=== PATIENT | female | born 1945 | race Caucasian/White ===

== ENCOUNTER 2022-07-13 04:14 | Inpatient (IN) | payer MEDICARE, OTHER ==
[~2022-07-13] VITALS: Ht 160 cm; Wt 89.1 kg
[2022-07-13] MEDS ORDERED: ALBUTEROL SULFATE 5 MG/ML 20 ML NEB SOLN [BULK] NEB ONE (04:30)
[2022-07-13] MEDS ORDERED: IPRATROPIUM BROMIDE 0.5 MG/2.5 ML NEB SOLUTION NEB ONE (04:30)
[2022-07-13 04:36] LABS: COVID AG,FIA SOURCE NASAL SWAB
[2022-07-13 04:38] LABS: BASOPHILS % (AUTO) 0.6 % (0.0-2.0); EOSINOPHILS % (AUTO) 2.1 % (1.0-6.0); HEMATOCRIT 41.5 % (36-46); HEMOGLOBIN 13.3 g/dL (12.0-16.0); LYMPHOCYTES # (AUTO) 0.6 K/uL (1.0-4.8); MEAN CORPUSCULAR HEMOGLOBIN 30.9 pg (26.0-34.0); MEAN CORPUSCULAR HGB CONC 32.1 G/dL (31.0-37.0); MEAN CORPUSCULAR VOLUME 96 fL (80-100); MONOCYTES # (AUTO) 0.5 K/uL (0.1-1.0); MONOCYTES % (AUTO) 4.1 % (2.0-9.0); NEUTROPHILS # (AUTO) 10.8 K/uL (1.8-7.7); PLATELET COUNT (AUTO) 260 K/uL (150-450); RED BLOOD CELL COUNT(AUTO) 4.31 MIL/uL (4.00-5.20); RED CELL DISTRIBUTION WIDTH 15.9 % (11.5-14.5)
[2022-07-13] MEDS ORDERED: ONDANSETRON HCL 4 MG/2 ML VIAL IVP ONE (04:45)
[2022-07-13] MEDS ORDERED: MORPHINE SULFATE 4 MG/ML SYRINGE IVP ONE (04:45)
[2022-07-13 04:48] LABS: NEUTROPHILS % (AUTO) 88.2 % (40.0-70.0)
[2022-07-13 05:00] LABS: BILIRUBIN,TOTAL 0.5 mg/dL (0.1-1.0); CALCIUM, TOTAL 9.3 mg/dL (8.8-10.5); CREATININE 1.07 mg/dL (0.60-1.30); POTASSIUM 5.2 mmol/L (3.5-5.1); TOTAL PROTEIN, SERUM 7.6 g/dL (6.4-8.2)
[2022-07-13 05:06] LABS: ABG BASE EXCESS 13.5 mmol/L (-2.0-3.0); ABG CARBOXYHEMOGLOBIN 0.6 % (0.0-1.5); ABG HCO3 31.4 mmol/L (22.0-26.0); ABG METHEMOGLOBIN 0.4 % (0.0-1.5); ABG OXYGEN CONTENT 18.8 mL/dL (15.0-23.0); ABG OXYGEN SATURATION 94.1 % (95.0-98.0); ABG OXYHEMOGLOBIN 93.2 % (94.0-100.0); ABG TOTAL HEMOGLOBIN 14.3 G/dL (12.0-18.0); PO2, ARTERIAL BG 90.7 mmHg (75.0-83.0); SOURCE, BLOOD GAS ARTERIAL; TEMPERATURE, FAHRENHEIT, BG 97.5 FAHREN (96.0-98.6)
[2022-07-13 05:12] LABS: ABG PCO2 152 mmHg (35-45); ABG PH 7.075 (7.35-7.450); SITE, BLOOD GAS LFT RADIAL
[2022-07-13 05:13] LABS: ABG A-A DIFF O2 472.4 mmHg (10-20.0); O2 DEVICE,BLOOD GAS NRB (ROOM AIR)
[2022-07-13] MEDS ORDERED: FUROSEMIDE 40 MG/4 ML VIAL IVP ONE (05:30)
[2022-07-13] MEDS ORDERED: LEVOFLOXACIN 750 MG/D5% WATER 150 ML IV ONE (05:30)
[2022-07-13] MEDS ORDERED: ALBUTEROL SULFATE 2.5 MG/0.5 ML NEB SOLUTION NEB PRN (08:15)
[2022-07-13] MEDS ORDERED: SODIUM CHLORIDE 0.9% 1,000 ML IV ONE (08:15)
[2022-07-13] MEDS ORDERED: ONDANSETRON HCL 4 MG/2 ML VIAL IVP PRN (08:15)
[2022-07-13] MEDS ORDERED: BISACODYL 10 MG RECTAL RECTAL SUPPOSITORY PR PRN (08:15)
[2022-07-13] MEDS ORDERED: DEXTROSE 50%-WATER 25 GM/50 ML SYRINGE IVP PRN (08:15)
[2022-07-13] MEDS ORDERED: *CLINICAL-LEVOFLOXACIN IVPB DOSING CLINICAL ONE (08:15)
[2022-07-13] MEDS: INSULIN LISPRO 100 UNITS/ML SQ PRN ×3 (09:07→18:54)
[2022-07-13 09:26] LABS: GLUCOMETER DEV NAME(LOC) ERT.5; GLUCOSE,POINT OF CARE 287 MG/DL (70-110)
[2022-07-13] MEDS: MORPHINE SULFATE 2 MG/ML SYRINGE IVP PRN (10:36)
[2022-07-13 13:56] LABS: GLUCOMETER DEV NAME(LOC) ERT.5; GLUCOSE,POINT OF CARE 195 MG/DL (70-110)
[2022-07-13 15:40] LABS: APPEARANCE,URINE CLEAR (CLEAR); BILIRUBIN,URINE NEGATIVE (NEGATIVE); GLUCOSE, URINE (UA) TRACE mg/dL (NEGATIVE); KETONES,URINE NEGATIVE (NEGATIVE); LEUKOCYTE ESTERASE ,URINE NEGATIVE (NEGATIVE); NITRATE,URINE NEGATIVE (NEGATIVE); OCCULT BLOOD,URINE NEGATIVE (NEGATIVE); PROTEIN,URINE 30-70 mg/dL (NEGATIVE); SPECIFIC GRAVITIY, URINE 1.011 (1.003-1.030); UROBILINOGEN,URINE <=1.0 mg/dL (<=1.0)
[2022-07-13] MEDS: HEPARIN SODIUM,PORCINE 5,000 UNITS/ML VIAL SQ SCH ×2 (15:44→23:34)
[2022-07-13 16:00] VITALS: BP 98/49
[2022-07-13 19:32] VITALS: BP 100/54
[2022-07-13 21:21] VITALS: BP 136/56
[2022-07-13 21:52] LABS: GLUCOMETER DEV NAME(LOC) 5N.1C; GLUCOSE,POINT OF CARE 156 MG/DL (70-110)
[2022-07-14] MEDS ORDERED: SODIUM CHLORIDE 0.9% 250 ML IV ONE ×2 (04:09→16:28)
[2022-07-14] MEDS ORDERED: LEVOFLOXACIN 750 MG/D5% WATER 150 ML IV SCH (05:00)
[2022-07-14 05:32] VITALS: BP 137/60
[2022-07-14 06:25] LABS: BASOPHILS % (AUTO) 0.4 % (0.0-2.0); EOSINOPHILS % (AUTO) 2.2 % (1.0-6.0); HEMATOCRIT 38.1 % (36-46); HEMOGLOBIN 12.1 g/dL (12.0-16.0); LYMPHOCYTES # (AUTO) 0.4 K/uL (1.0-4.8); LYMPHOCYTES % (AUTO) 5.2 % (22.0-44.0); MEAN CORPUSCULAR HEMOGLOBIN 31.1 pg (26.0-34.0); MEAN CORPUSCULAR HGB CONC 31.8 G/dL (31.0-37.0); MEAN CORPUSCULAR VOLUME 98 fL (80-100); MONOCYTES # (AUTO) 1.1 K/uL (0.1-1.0); MONOCYTES % (AUTO) 13.3 % (2.0-9.0); NEUTROPHILS # (AUTO) 6.7 K/uL (1.8-7.7); NEUTROPHILS % (AUTO) 78.9 % (40.0-70.0); PLATELET COUNT (AUTO) 186 K/uL (150-450); RED BLOOD CELL COUNT(AUTO) 3.89 MIL/uL (4.00-5.20); RED CELL DISTRIBUTION WIDTH 15.6 % (11.5-14.5)
[2022-07-14 06:39] LABS: CALCIUM, TOTAL 8.9 mg/dL (8.8-10.5); CREATININE 1.11 mg/dL (0.60-1.30); POTASSIUM 4.9 mmol/L (3.5-5.1)
[2022-07-14 06:57] LABS: GLUCOMETER DEV NAME(LOC) 6N.1; GLUCOSE,POINT OF CARE 98 MG/DL (70-110)
[2022-07-14 06:58] LABS: GLUCOMETER DEV NAME(LOC) 6N.1; GLUCOSE,POINT OF CARE 98 MG/DL (70-110)
[2022-07-14] MEDS ORDERED: 0.9% SODIUM CHLORIDE 5 ML NEB SOLUTION NEB ONE (07:04)
[2022-07-14] MEDS: HEPARIN SODIUM,PORCINE 5,000 UNITS/ML VIAL SQ SCH (08:47)
[2022-07-14] MEDS: MORPHINE SULFATE 2 MG/ML SYRINGE IVP PRN ×2 (09:29→23:25)
[2022-07-14] MEDS ORDERED: SENNA/DOCUSATE SODIUM 8.6-50 MG TABLET PO PRN (15:00)
[2022-07-14] MEDS ORDERED: ONDANSETRON HCL 4 MG/2 ML VIAL IVP PRN (15:00)
[2022-07-14] MEDS ORDERED: *CLINICAL-MEROPENEM DOSING CLINICAL ONE (15:00)
[2022-07-14] MEDS ORDERED: DOCUSATE SODIUM 100 MG CAPSULE PO PRN (15:00)
[2022-07-14] MEDS ORDERED: CETIRIZINE HCL 10 MG TABLET PO PRN (15:00)
[2022-07-14] MEDS ORDERED: LIDOCAINE 5% 36 GM OINTMENT TP PRN (15:00)
[2022-07-14 15:23] LABS: ABG BASE EXCESS 12.8 mmol/L (-2.0-3.0); ABG CARBOXYHEMOGLOBIN 0.8 % (0.0-1.5); ABG HCO3 33.1 mmol/L (22.0-26.0); ABG METHEMOGLOBIN 0.3 % (0.0-1.5); ABG OXYGEN CONTENT 17.4 mL/dL (15.0-23.0); ABG OXYGEN SATURATION 93.8 % (95.0-98.0); ABG OXYHEMOGLOBIN 92.8 % (94.0-100.0); ABG PH 7.283 (7.35-7.450); ABG TOTAL HEMOGLOBIN 13.3 G/dL (12.0-18.0); SOURCE, BLOOD GAS ARTERIAL; TEMPERATURE, FAHRENHEIT, BG 98.6 FAHREN (96.0-98.6)
[2022-07-14 15:25] LABS: ABG A-A DIFF O2 408.7 mmHg (10-20.0); ABG PCO2 85 mmHg (35-45); SITE, BLOOD GAS LFT RADIAL
[2022-07-14 15:26] LABS: O2 DEVICE,BLOOD GAS NON-REB (ROOM AIR)
[2022-07-14 15:36] LABS: GLUCOMETER DEV NAME(LOC) 6N.1; GLUCOSE,POINT OF CARE 134 MG/DL (70-110)
[2022-07-14 16:10] VITALS: BP 146/55
[2022-07-14] MEDS: MEROPENEM 1 GM in SODIUM CHLORIDE 0.9% 100 ML IV SCH ×2 (16:30→23:24)
[2022-07-14] MEDS ORDERED: VANCOMYCIN 1GM/WATER(PEG/NADA) 200 ML IV ONE (17:00)
[2022-07-14] MEDS: IPRATROPIUM BROMIDE 0.5 MG/2.5 ML NEB SOLUTION NEB SCH (20:00)
[2022-07-14] MEDS: ALBUTEROL SULFATE 2.5 MG/0.5 ML NEB SOLUTION NEB SCH (20:00)
[2022-07-14 20:07] VITALS: BP 126/58
[2022-07-14] MEDS: FAMOTIDINE 20 MG TABLET PO SCH (21:00)
[2022-07-14] MEDS: GABAPENTIN 300 MG CAPSULE PO SCH (21:00)
[2022-07-14] MEDS: APIXABAN 5 MG TABLET PO SCH (21:00)
[2022-07-15] VITALS (9 sets, daily range): BP systolic 112–194; BP diastolic 69–108
[2022-07-15] MEDS: IPRATROPIUM BROMIDE 0.5 MG/2.5 ML NEB SOLUTION NEB SCH ×4 (02:58→20:03)
[2022-07-15] MEDS: ALBUTEROL SULFATE 2.5 MG/0.5 ML NEB SOLUTION NEB SCH ×4 (02:58→20:03)
[2022-07-15 06:16] LABS: GLUCOMETER DEV NAME(LOC) 5N.1C; GLUCOSE,POINT OF CARE 182 MG/DL (70-110)
[2022-07-15 06:16] LABS: GLUCOMETER DEV NAME(LOC) 5N.1C; GLUCOSE,POINT OF CARE 153 MG/DL (70-110)
[2022-07-15 07:42] LABS: BASOPHILS % (AUTO) 0.9 % (0.0-2.0); HEMATOCRIT 37.7 % (36-46); HEMOGLOBIN 12.5 g/dL (12.0-16.0); LYMPHOCYTES # (AUTO) 0.4 K/uL (1.0-4.8); LYMPHOCYTES % (AUTO) 4.6 % (22.0-44.0); MEAN CORPUSCULAR HEMOGLOBIN 31.7 pg (26.0-34.0); MEAN CORPUSCULAR VOLUME 96 fL (80-100); MONOCYTES # (AUTO) 0.7 K/uL (0.1-1.0); MONOCYTES % (AUTO) 7.4 % (2.0-9.0); NEUTROPHILS # (AUTO) 7.9 K/uL (1.8-7.7); PLATELET COUNT (AUTO) 183 K/uL (150-450); RED BLOOD CELL COUNT(AUTO) 3.93 MIL/uL (4.00-5.20); RED CELL DISTRIBUTION WIDTH 15.1 % (11.5-14.5)
[2022-07-15 07:43] LABS: NEUTROPHILS % (AUTO) 86.1 % (40.0-70.0)
[2022-07-15 08:21] LABS: ALBUMIN 2.6 g/dL (3.4-5.0); BILIRUBIN,TOTAL 0.7 mg/dL (0.1-1.0); CREATININE 1.04 mg/dL (0.60-1.30); POTASSIUM 4.2 mmol/L (3.5-5.1); TOTAL PROTEIN, SERUM 6.6 g/dL (6.4-8.2)
[2022-07-15 08:32] LABS: CALCIUM, TOTAL 9.3 mg/dL (8.8-10.5)
[2022-07-15] MEDS: FOSINOPRIL SODIUM 20 MG TABLET PO SCH (09:00)
[2022-07-15] MEDS: CHOLECALCIFEROL (VIT D3) 1,000 UNITS [25 MCG] TABLET PO SCH (09:00)
[2022-07-15] MEDS: APIXABAN 5 MG TABLET PO SCH ×2 (09:00→21:00)
[2022-07-15] MEDS: AmLODIPine BESYLATE 10 MG TABLET PO SCH (09:00)
[2022-07-15] MEDS: FAMOTIDINE 20 MG TABLET PO SCH ×2 (09:00→21:00)
[2022-07-15] MEDS: VANCOMYCIN HCL 750 MG in DEXTROSE 5%-WATER 250 ML IV SCH ×2 (09:18→20:37)
[2022-07-15] MEDS: MEROPENEM 1 GM in SODIUM CHLORIDE 0.9% 100 ML IV SCH ×2 (09:18→15:59)
[2022-07-15] MEDS: HydrALAZINE HCL 20 MG/ML VIAL IVP PRN ×2 (09:26→16:04)
[2022-07-15] MEDS: MORPHINE SULFATE 2 MG/ML SYRINGE IVP PRN (09:27)
[2022-07-15] MEDS ORDERED: ENALAPRILAT DIHYDRATE 1.25 MG/ML VIAL IVP PRN (12:15)
[2022-07-15] MEDS ORDERED: CloNIDine 0.1 MG/24 HOUR PATCH TD SCH (14:00)
[2022-07-15 17:02] LABS: GLUCOMETER DEV NAME(LOC) 5N.1C; GLUCOSE,POINT OF CARE 181 MG/DL (70-110)
[2022-07-15] MEDS ORDERED: SODIUM CHLORIDE 0.9% 250 ML IV ONE (17:33)
[2022-07-15] MEDS: GABAPENTIN 300 MG CAPSULE PO SCH (21:00)
[2022-07-16 00:22] LABS: GLUCOMETER DEV NAME(LOC) 5N.1C; GLUCOSE,POINT OF CARE 163 MG/DL (70-110)
[2022-07-16 00:22] LABS: GLUCOMETER DEV NAME(LOC) 5N.1C; GLUCOSE,POINT OF CARE 158 MG/DL (70-110)
[2022-07-16] MEDS: MEROPENEM 1 GM in SODIUM CHLORIDE 0.9% 100 ML IV SCH ×4 (00:58→23:29)
[2022-07-16] MEDS: IPRATROPIUM BROMIDE 0.5 MG/2.5 ML NEB SOLUTION NEB SCH ×4 (02:09→20:00)
[2022-07-16] MEDS: ALBUTEROL SULFATE 2.5 MG/0.5 ML NEB SOLUTION NEB SCH ×4 (02:09→20:00)
[2022-07-16 04:47] VITALS: BP 155/65
[2022-07-16 07:14] LABS: BASOPHILS % (AUTO) 0.6 % (0.0-2.0); EOSINOPHILS % (AUTO) 2.7 % (1.0-6.0); HEMATOCRIT 39.3 % (36-46); HEMOGLOBIN 12.6 g/dL (12.0-16.0); LYMPHOCYTES # (AUTO) 0.4 K/uL (1.0-4.8); MEAN CORPUSCULAR HEMOGLOBIN 30.9 pg (26.0-34.0); MEAN CORPUSCULAR HGB CONC 32.1 G/dL (31.0-37.0); MEAN CORPUSCULAR VOLUME 96 fL (80-100); MONOCYTES # (AUTO) 0.7 K/uL (0.1-1.0); MONOCYTES % (AUTO) 9.8 % (2.0-9.0); NEUTROPHILS # (AUTO) 6.1 K/uL (1.8-7.7); NEUTROPHILS % (AUTO) 80.9 % (40.0-70.0); PLATELET COUNT (AUTO) 175 K/uL (150-450); RED CELL DISTRIBUTION WIDTH 15.8 % (11.5-14.5)
[2022-07-16 07:18] LABS: ALBUMIN 2.4 g/dL (3.4-5.0); BILIRUBIN,TOTAL 0.6 mg/dL (0.1-1.0); CALCIUM, TOTAL 9.1 mg/dL (8.8-10.5); CREATININE 0.95 mg/dL (0.60-1.30); POTASSIUM 3.7 mmol/L (3.5-5.1); TOTAL PROTEIN, SERUM 6.3 g/dL (6.4-8.2)
[2022-07-16 07:46] VITALS: BP 158/80
[2022-07-16] MEDS: VANCOMYCIN HCL 750 MG in DEXTROSE 5%-WATER 250 ML IV SCH ×2 (08:01→20:18)
[2022-07-16] MEDS: APIXABAN 5 MG TABLET PO SCH ×2 (08:01→21:00)
[2022-07-16] MEDS: FOSINOPRIL SODIUM 20 MG TABLET PO SCH (08:02)
[2022-07-16] MEDS: CHOLECALCIFEROL (VIT D3) 1,000 UNITS [25 MCG] TABLET PO SCH (08:02)
[2022-07-16] MEDS: AmLODIPine BESYLATE 10 MG TABLET PO SCH (08:02)
[2022-07-16] MEDS: FAMOTIDINE 20 MG TABLET PO SCH ×2 (08:02→21:00)
[2022-07-16 08:28] LABS: VANCOMYCIN,RANDOM 19.6 mcg/mL (25.0-50.0)
[2022-07-16 11:06] VITALS: BP 140/68
[2022-07-16 15:31] VITALS: BP 147/70
[2022-07-16 17:27] LABS: ABG BASE EXCESS 11.6 mmol/L (-2.0-3.0); ABG CARBOXYHEMOGLOBIN 0.3 % (0.0-1.5); ABG HCO3 33.6 mmol/L (22.0-26.0); ABG METHEMOGLOBIN 0.3 % (0.0-1.5); ABG OXYGEN CONTENT 17.9 mL/dL (15.0-23.0); ABG OXYGEN SATURATION 98.5 % (95.0-98.0); ABG OXYHEMOGLOBIN 97.9 % (94.0-100.0); ABG PCO2 54 mmHg (35-45); ABG PH 7.437 (7.35-7.450); ABG TOTAL HEMOGLOBIN 12.9 G/dL (12.0-18.0); PO2, ARTERIAL BG 116.2 mmHg (75.0-83.0); SOURCE, BLOOD GAS ARTERIAL; TEMPERATURE, FAHRENHEIT, BG 98.2 FAHREN (96.0-98.6)
[2022-07-16 17:29] LABS: ABG A-A DIFF O2 397.7 mmHg (10-20.0); O2 DEVICE,BLOOD GAS NON-REB (ROOM AIR); SITE, BLOOD GAS LFT RADIAL
[2022-07-16 17:41] LABS: GLUCOMETER DEV NAME(LOC) 5N.1C; GLUCOSE,POINT OF CARE 180 MG/DL (70-110)
[2022-07-16 19:46] LABS: GLUCOMETER DEV NAME(LOC) 5N.3; GLUCOSE,POINT OF CARE 147 MG/DL (70-110)
[2022-07-16 20:41] LABS: GLUCOMETER DEV NAME(LOC) 5S.2B; GLUCOSE,POINT OF CARE 171 MG/DL (70-110)
[2022-07-16] MEDS: GABAPENTIN 300 MG CAPSULE PO SCH (21:00)
[2022-07-17] MEDS: IPRATROPIUM BROMIDE 0.5 MG/2.5 ML NEB SOLUTION NEB SCH ×4 (02:00→20:00)
[2022-07-17] MEDS: ALBUTEROL SULFATE 2.5 MG/0.5 ML NEB SOLUTION NEB SCH ×4 (02:00→20:00)
[2022-07-17] MEDS ORDERED: SODIUM CHLORIDE 0.9% 250 ML IV ONE (04:40)
[2022-07-17] MEDS: VANCOMYCIN HCL 750 MG in DEXTROSE 5%-WATER 250 ML IV SCH ×2 (08:00→20:00)
[2022-07-17] MEDS: MEROPENEM 1 GM in SODIUM CHLORIDE 0.9% 100 ML IV SCH ×4 (08:00→23:47)
[2022-07-17] MEDS: AmLODIPine BESYLATE 10 MG TABLET PO SCH (08:14)
[2022-07-17] MEDS: APIXABAN 5 MG TABLET PO SCH ×2 (08:14→20:14)
[2022-07-17] MEDS: FOSINOPRIL SODIUM 20 MG TABLET PO SCH (08:14)
[2022-07-17] MEDS: CHOLECALCIFEROL (VIT D3) 1,000 UNITS [25 MCG] TABLET PO SCH (08:15)
[2022-07-17] MEDS: FAMOTIDINE 20 MG TABLET PO SCH ×2 (08:15→20:14)
[2022-07-17] MEDS ORDERED: CloNIDine 0.1 MG/24 HOUR PATCH TD SCH (12:30)
[2022-07-17] MEDS ORDERED: MORPHINE SULFATE 2 MG/ML SYRINGE IVP PRN (13:15)
[2022-07-17] MEDS ORDERED: ONDANSETRON HCL 4 MG/2 ML VIAL IVP PRN (13:15)
[2022-07-17] MEDS: GABAPENTIN 300 MG CAPSULE PO SCH (20:14)
[2022-07-18] MEDS: ALBUTEROL SULFATE 2.5 MG/0.5 ML NEB SOLUTION NEB SCH ×4 (02:00→20:00)
[2022-07-18] MEDS: IPRATROPIUM BROMIDE 0.5 MG/2.5 ML NEB SOLUTION NEB SCH ×4 (02:00→20:00)
[2022-07-18] MEDS: MEROPENEM 1 GM in SODIUM CHLORIDE 0.9% 100 ML IV SCH ×2 (08:00→16:00)
[2022-07-18] MEDS: VANCOMYCIN HCL 750 MG in DEXTROSE 5%-WATER 250 ML IV SCH ×2 (08:00→20:00)
[2022-07-18] MEDS: APIXABAN 5 MG TABLET PO SCH ×2 (08:22→20:40)
[2022-07-18] MEDS: FOSINOPRIL SODIUM 20 MG TABLET PO SCH (08:22)
[2022-07-18] MEDS: AmLODIPine BESYLATE 10 MG TABLET PO SCH (08:22)
[2022-07-18] MEDS: CHOLECALCIFEROL (VIT D3) 1,000 UNITS [25 MCG] TABLET PO SCH (08:22)
[2022-07-18] MEDS: FAMOTIDINE 20 MG TABLET PO SCH ×2 (08:22→20:40)
[2022-07-18] MEDS ORDERED: SCOPOLAMINE HYDROBROMIDE 1 MG/72 HOUR PATCH TD SCH (09:00)
[2022-07-18] MEDS: GABAPENTIN 300 MG CAPSULE PO SCH (20:40)
[2022-07-19] MEDS: ALBUTEROL SULFATE 2.5 MG/0.5 ML NEB SOLUTION NEB SCH ×4 (02:00→20:00)
[2022-07-19] MEDS: IPRATROPIUM BROMIDE 0.5 MG/2.5 ML NEB SOLUTION NEB SCH ×4 (02:00→20:00)
[2022-07-19] MEDS: VANCOMYCIN HCL 750 MG in DEXTROSE 5%-WATER 250 ML IV SCH ×2 (08:00→20:00)
[2022-07-19] MEDS: MEROPENEM 1 GM in SODIUM CHLORIDE 0.9% 100 ML IV SCH ×4 (08:00→16:00)
[2022-07-19] MEDS: FAMOTIDINE 20 MG TABLET PO SCH ×2 (09:00→20:05)
[2022-07-19] MEDS: APIXABAN 5 MG TABLET PO SCH ×2 (09:00→20:07)
[2022-07-19] MEDS: CHOLECALCIFEROL (VIT D3) 1,000 UNITS [25 MCG] TABLET PO SCH (09:00)
[2022-07-19] MEDS: AmLODIPine BESYLATE 10 MG TABLET PO SCH (09:00)
[2022-07-19] MEDS ORDERED: NICOTINE 7 MG/24 HOUR PATCH TD SCH (09:00)
[2022-07-19] MEDS: FOSINOPRIL SODIUM 20 MG TABLET PO SCH (09:00)
[2022-07-19] MEDS ORDERED: APIX5TAB PO (17:55)
[2022-07-19] MEDS ORDERED: AUD NEB (17:55)
[2022-07-19] MEDS ORDERED: CHOL25TA4 PO (17:56)
[2022-07-19] MEDS ORDERED: AMLO-258 PO (17:56)
[2022-07-19] MEDS ORDERED: CLON1PAT12 TD (17:57)
[2022-07-19] MEDS ORDERED: FAMO20 PO (17:57)
[2022-07-19] MEDS ORDERED: FOSI20TA98 PO (17:57)
[2022-07-19] MEDS ORDERED: GABA-1181 PO (17:58)
[2022-07-19] MEDS ORDERED: NICO-800 TD (17:58)
[2022-07-19] MEDS ORDERED: SCOP1PAT12 TP (17:59)
[2022-07-19] MEDS ORDERED: IPRNEB IH (17:59)
[2022-07-19] MEDS ORDERED: DOCU-385 PO (18:00)
[2022-07-19] MEDS ORDERED: A20IH1 NEB (18:00)
[2022-07-19] MEDS: GABAPENTIN 300 MG CAPSULE PO SCH (20:05)
== END 2022-07-19 23:36 | DRG 189 ==
LOC: EMS 04:15 → 5S 16:45 → 6N 21:10 → 6S 07-14 14:42 → 5S 07-14 18:45 → 6S 07-17 18:00
PROVIDERS: ADMIT Internal Medicine; ATTEND Internal Medicine
DX: J96.01 Acute respiratory failure with hypoxia (principal); J91.8 Pleural effusion in other conditions classified elsewhere; I11.0 Hypertensive heart disease with heart failure; I50.9 Heart failure, unspecified; E11.65 Type 2 diabetes mellitus with hyperglycemia; E66.01 Morbid (severe) obesity due to excess calories; R62.7 Adult failure to thrive; Z66 Do not resuscitate; F03.90 Unspecified dementia, unspecified severity, without behavioral disturbance, psychotic disturbance, mood disturbance, and anxiety; Z20.822 Contact with and (suspected) exposure to COVID-19; Z68.34 Body mass index [BMI] 34.0-34.9, adult; Z79.899 Other long term (current) drug therapy; Z51.5 Encounter for palliative care; Z79.4 Long term (current) use of insulin; Z85.3 Personal history of malignant neoplasm of breast; Z88.8 Allergy status to other drugs, medicaments and biological substances; Z88.0 Allergy status to penicillin
CPT/HCPCS: 36600; 71045; 80048; 80053; 80202; 81003; 82550; 82805; 82962; 83880; 84484; 85025; 85379; 87040; 87081; 92526; 92610; 93005; 94640; 94644; 94660; 97162; 99285; J0360; J1644; J1815; J1940; J1956; J2185; J2270; J2405; J3370; J7050; J7060; Q9967; 36415-L1; 36415-TC; J7611; J7613